=== PATIENT | female | born 1975 | race Caucasian/White ===

== ENCOUNTER 2020-07-18 03:21 | Emergency (ER) | payer OTHER ==
[~2020-07-18] VITALS: Ht 162.6 cm; Wt 65.8 kg
[2020-07-18 03:41] VITALS: BP 155/96
--- NOTE | 2020-07-18 03:47 | NUR ---
Patient discharged to [facility] in stable condition. Written and verbal after care instructions given. Patient verbalizes understanding of instruction.
== END 2020-07-18 03:49 ==
LOC: ER 03:21
DX: S71.151D Open bite, right thigh, subsequent encounter (principal); Z88.2 Allergy status to sulfonamides; W54.0XXD Bitten by dog, subsequent encounter